=== PATIENT | male | born 1975 | race Caucasian/White ===

== ENCOUNTER 2021-06-25 09:09 | Outpatient (CLI) | payer OTHER | END 2021-06-25 09:10 | disposition home or self-care (01) | LOC: CSHCT 09:09 | PROVIDERS: ATTEND Otolaryngology Plastic Surgery within the Head & Neck | DX: H93.A2 Pulsatile tinnitus, left ear (principal); H90.A12 Conductive hearing loss, unilateral, left ear with restricted hearing on the contralateral side; H74.8X2 Other specified disorders of left middle ear and mastoid; I65.21 Occlusion and stenosis of right carotid artery; M47.812 Spondylosis without myelopathy or radiculopathy, cervical region | CPT/HCPCS: 70480; 70496; 70498 ==